=== PATIENT | female | born 1960 | race African-American/Black ===

== ENCOUNTER 2020-04-09 19:30 | Emergency (ER) | payer BC ==
[~2020-04-09] VITALS: Ht 175.3 cm; Wt 51.4 kg
[2020-04-09] MEDS ORDERED: IV NORMAL SALINE 1,000ML 1,000 ML IV SCH (19:46)
[2020-04-09] MEDS ORDERED: ONDANSETRON PF 4 MG/2 ML VIAL. IVP ONE (20:00)
--- NOTE | 2020-04-09 20:02 | PHYS DOC ---
Past History Past Medical History: Diabetes Past Surgical History: Other (knee) Additional Past Surgical Histo: knee surgery Smoking: Non-smoker Alcohol Use: Rarely Drug Use: None General Adult EDM: Chief Complaint: NAUSEA/VOMITING/DIARRHEA HPI: HPI: Patient is a 59 year old female who presents for evaluation of mid and lower abdominal discomfort that started about 3 PM today. Patient began recurring episodes of nausea and vomiting. Patient denies any known exposure to Covid but she is visiting from [place]. He is up to see family for a . Patient is in mild to moderate distress on arrival. Vital signs were otherwise stable. No reported black, bloody or tarry stools. Review of Systems: Review of Systems: Constitutional: Denies fever or chills Eyes: Denies change in visual acuity HENT: Denies nasal congestion or sore throat Respiratory: Denies cough or shortness of breath Cardiovascular: Denies chest pain or edema GI: has mid and lower abdominal pain with nausea and vomiting, no bloody stools or diarrhea : Denies dysuria Musculoskeletal: Denies back pain or joint pain Integument: Denies rash Neurologic: Denies headache, focal weakness or sensory changes Endocrine: Denies polyuria or polydipsia Lymphatic: Denies swollen glands Psychiatric: Denies depression or anxiety Current Medications: Current Meds: Current Medications Medications (Trade) Dose Ordered Sig/[facility] Start Time Stop Time Status Last Admin Dose Admin Fentanyl Citrate (Fentanyl 2ml Vial) 25 mcg PRN Q15MIN PRN 04/09/20 20:00 04/10/20 19:59 UNV Ondansetron HCl (Zofran) 4 mg 1X ONCE 04/09/20 20:00 04/09/20 20:01 UNV Sodium Chloride 1,000 ml @ 1,000 mls/hr Q1H 04/09/20 19:46 04/09/20 20:45 UNV Physical Exam: PE: Constitutional: Well developed, well nourished, mild to moderate acute distress. [] HENT: Normocephalic, atraumatic, bilateral external ears normal, oropharynx moist, no oral exudates, nose normal. [] Eyes: PERRL, EOMI, conjunctiva normal, no discharge. [] Neck: Normal range of motion, no tenderness, supple. [] Cardiovascular:Heart rate regular rhythm, no murmur [] Lungs & Thorax: Bilateral breath sounds clear to auscultation [] Abdomen: Bowel sounds normal, soft, mild to moderate mid and lower abd t enderness, no masses, no pulsatile masses. [] Skin: Warm, dry, no erythema, no rash. [] Back: No tenderness. [] Extremities: No tenderness, no cyanosis, ROM intact, no edema. [] Neurologic: Alert and oriented X 3, normal motor function, normal sensory function, no focal deficits noted. [] Psychologic: Affect abnormal, judgement normal, mood abnormal. [] Current Patient Data: Labs: Laboratory Tests Test 04/09/20 20:10 04/09/20 21:20 White Blood Count 4.6 x10^3/uL Red Blood Count 4.15 x10^6/uL Hemoglobin 12.0 g/dL Hematocrit 36.5 % Mean Corpuscular Volume 88 fL Mean Corpuscular Hemoglobin 29 pg Mean Corpuscular Hemoglobin Concent 33 g/dL Red Cell Distribution Width 13.5 % Platelet Count 189 x10^3/uL Neutrophils (%) (Auto) 73 % Lymphocytes (%) (Auto) 19 % Monocytes (%) (Auto) 6 % Eosinophils (%) (Auto) 2 % Basophils (%) (Auto) 1 % Neutrophils # (Auto) 3.3 x10^3uL Lymphocytes # (Auto) 0.9 x10^3/uL Monocytes # (Auto) 0.3 x10^3/uL Eosinophils # (Auto) 0.1 x10^3/uL Basophils # (Auto) 0.0 x10^3/uL Sodium Level 139 mmol/L Potassium Level 3.7 mmol/L Chloride Level 102 mmol/L Carbon Dioxide Level 28 mmol/L Anion Gap 9 Blood Urea Nitrogen 10 mg/dL Creatinine 0.5 mg/dL Estimated GFR (Cockcroft-Gault) 126.7 BUN/Creatinine Ratio 20 Glucose Level 200 mg/dL Calcium Level 9.7 mg/dL Total Bilirubin 0.6 mg/dL Aspartate Amino Transf (AST/SGOT) 16 U/L Alanine Aminotransferase (ALT/SGPT) 19 U/L Alkaline Phosphatase 53 U/L Troponin I Quantitative < 0.017 ng/mL Total Protein 7.6 g/dL Albumin 3.9 g/dL Albumin/Globulin Ratio 1.1 Lipase 40 U/L Urine Collection Type Unknown Urine Color Yellow Urine Clarity Hazy Urine pH 7.5 Urine Specific [place] 1.025 Urine Protein Trace Urine Glucose (UA) 500 mg/dL Urine Ketones (Stick) 40 mg/dL Urine Blood Trace Urine Nitrite Neg Urine Bilirubin Neg Urine Urobilinogen Dipstick 1.0 mg/dL Urine Leukocyte Esterase Neg Urine RBC Rare /HPF Urine WBC Rare /HPF Urine Squamous Epithelial Cells None /LPF Urine Bacteria 0 /HPF Current Medications Medications (Trade) Dose Ordered Sig/Alex Route PRN Reason Start Time Stop Time Status Last Admin Dose Admin Fentanyl Citrate (Fentanyl 2ml Vial) 25 mcg PRN Q15MIN PRN IV PAIN GREATER THAN 3/10 04/09/20 20:00 04/10/20 19:59 04/09/20 20:12 Sodium Chloride 1,000 ml @ 1,000 mls/hr Q1H IV 04/09/20 19:46 04/09/20 20:45 DC 04/09/20 20:11 Ondansetron HCl (Zofran) 4 mg 1X ONCE IVP 04/09/20 20:00 04/09/20 20:38 DC 04/09/20 20:12 Fentanyl Citrate (Fentanyl 2ml Vial) 50 mcg 1X ONCE IVP 04/09/20 21:15 04/09/20 21:16 DC 04/09/20 21:31 Iohexol (Omnipaque 300 Mg/ml) 75 ml 1X ONCE IV 04/09/20 21:45 04/09/20 21:47 DC Info (Do NOT chart on this entry -- for MONITORING) 1 each PRN DAILY PRN MC SEE COMMENTS 04/09/20 21:45 04/11/20 21:44 EKG: EKG: [EKG showed normal sinus rhythm, rate 90, nonspecific ST segment changes, rightward axis, QT somewhat prolonged, not STEMI Radiology/Procedures: Radiology/Procedures: [][address] [address] IMAGING REPORT Signed PATIENT: ADEEL RAHMAN ACCOUNT: [id number] : 1960 LOCATION: ER AGE: 59 SEX: F EXAM STATUS: PRE ER ORD. PHYSICIAN: AMILCAR WOLF DO REASON: short of air PROCEDURE: PORTABLE CHEST 1V Examination: PORTABLE CHEST 1V History: Reason: short of air / Spl. Instructions: / History: Comparison/Correlation: None Findings: Global from the chest was obtained. Heart size and pulmonary vasculature are normal. No effusion. Subtle infiltrate in the lateral right lung overlying the right sixth rib posterior shadow is questioned. No pneumothorax. Deformity of the right humeral head is notable. Impression: Small subtle infiltrate at the right lateral upper to midthoracic level. Interval follow-up 2 view chest x-ray to assess resolution recommended. Electronically signed by: Kristopher Dial MD (04/09/2020 8:34 PM) [facility] DICTATED AND SIGNED BY: KRISTOPHER DIAL MD DATE: 04/09/202033 CC: SANDY ISAAC MD; AMILCAR WOLF DO ~ Impressions: [address] [address] IMAGING REPORT Signed PATIENT: ADEEL RAHMAN ACCOUNT: [id number] : 1960 LOCATION: ER AGE: 59 SEX: F EXAM STATUS: REG ER ORD. PHYSICIAN: AMILCAR WOLF DO REASON: abd pain, N/V/D, OMNI 300, 75ml PROCEDURE: CT ABD PELV W/ IV CONTRST ONLY Exam: CT of abdomen and pelvis with contrast INDICATION: Abdominal pain, nausea, vomiting and diarrhea TECHNIQUE: Sequential axial images through the abdomen and pelvis obtained following the administration of 75 mL of Omni 300 IV contrast. Sagittal and coronal reformatted images were reconstructed from the axial data and reviewed. Comparisons: None FINDINGS: Heart size is normal. No pericardial effusion. Visualized lung bases are clear. Liver, spleen, pancreas, adrenals and gallbladder are unremarkable. Kidneys demonstrate symmetric enhancement. No perinephric inflammation or hydronephrosis. Nonobstructing calculus at the mid right kidney. No ureteral calculi are identified. Bladder is distended and appears thin-walled. Uterus is nonenlarged. No abnormal adnexal mass. Large and small bowel are unremarkable. Appendix is normal. No free intra-abdominal air or fluid. No obstruction. Abdominal aorta has a normal course and caliber. Abdominal vasculature is patent. No enlarged abdominal lymph nodes are identified. No enlarged abdominal lymph nodes are identified. No acute process identified within the abdomen or pelvis. IMPRESSION: 1. Nonobstructing right renal calculus. No evidence for obstructive uropathy. 2. Otherwise, no acute process identified within the abdomen or pelvis. Exposure: One or more of the following in the visualized dose reduction techniques were utilized for this examination: 1. Automated exposure control 2. Adjustment of the MA and/or KV according to patient size 3. Use of iterative of reconstructive technique Electronically signed by: Nabeel Prabhakar MD (04/09/2020 10:49 PM) [facility] DICTATED AND SIGNED BY: NABEEL PRABHAKAR MD DATE: 04/09/202248 CC: SANDY ISAAC MD; AMILCAR WOLF DO ~ Heart Score: Risk Factors: Risk Factors: DM, Current or recent (<one month) smoker, HTN, HLP, family history of CAD, obesity. Risk Scores: Score 0 - 3: 2.5% MACE over next 6 weeks - Discharge Home Score 4 - 6: 20.3% MACE over next 6 weeks - Admit for Clinical Observation Score 7 - 10: 72.7% MACE over next 6 weeks - Early Invasive Strategies Course & Med Decision Making: Course & Med Decision Making Pertinent Labs and Imaging studies reviewed. (See chart for details) [] Dragon Disclaimer: Dragon Disclaimer: This electronic medical record was generated, in whole or in part, using a voice recognition dictation system. 2255 stable, feeling much better at this time. Pain is essentially controlled. Cause of her abdominal discomfort is unclear but her CT scan abdomen pelvis was unremarkable. Furthermore her blood work including urinalysis also unremarkable. She has a finding of a renal stone but there is no evidence of a hydroureter etc. Supportive care recommended. Prescription for Bentyl and Zofran given. Close follow-up recommended. Detailed follow-up instructions Departure Departure: Impression: Primary Impression: Abdominal pain, acute, generalized Additional Impression: Nausea & vomiting Qualified Codes: R11.2 - Nausea with vomiting, unspecified Disposition: 01 DC HOME SELF CARE/HOMELESS Condition: STABLE Referrals: SANDY ISAAC MD (PCP) Patient Instructions: Abdominal Pain, Nausea and Vomiting Additional Instructions: Drink plenty fluids, rest, cause of your abdominal pain is unclear however your blood work, urinalysis and CT scan abd/pelvis were unremarkable Scripts Dicyclomine Hcl (DICYCLOMINE HCL) 20 Mg Tablet 1 TAB PO TID for abd cramping, #30 TAB 1 Refill Prov: AMILCAR WOLF DO 04/09/20 Ondansetron Hcl (ZOFRAN) 4 Mg Tablet 1 TAB PO PRN Q6HRS PRN for NAUSEA, #10 TAB Prov: AMILCAR WOLF DO 04/09/20 AMILCAR WOLF DO Apr 09, 2020 20:02
--- NOTE | 2020-04-09 20:37 | RAD ---
Examination: PORTABLE CHEST 1V History: Reason: short of air / Spl. Instructions: / History: Comparison/Correlation: None Findings: Global from the chest was obtained. Heart size and pulmonary vasculature are normal. No effusion. Subtle infiltrate in the lateral right lung overlying the right sixth rib posterior shadow is questioned. No pneumothorax. Deformity of the right humeral head is notable. Impression: Small subtle infiltrate at the right lateral upper to midthoracic level. Interval follow-up 2 view chest x-ray to assess resolution recommended. Electronically signed by: Kristopher Vasquez MD (04/09/2020 8:34 PM) [facility]
[2020-04-09 20:41] LABS: BASO % 1 % (0-3); EOS # 0.1 x10^3/uL (0.0-0.7); EOS % 2 % (0-3); HEMATOCRIT 36.5 % (36.0-47.0); LYMPH # 0.9 x10^3/uL (1.0-4.8); LYMPH % 19 % (24-48); MEAN CORPUSCULAR HEMOGLOBIN 29 pg (25-35); MEAN CORPUSCULAR HGB CONC 33 g/dL (31-37); MEAN CORPUSCULAR VOLUME 88 fL (79-100); MONO # 0.3 x10^3/uL (0.0-1.1); MONO % 6 % (0-9); NEUT # 3.3 x10^3uL (1.8-7.7); NEUT % 73 % (31-73); PLATELET COUNT 189 x10^3/uL (140-400); RED BLOOD COUNT 4.15 x10^6/uL (3.50-5.40); RED CELL DISTRIBUTION WIDTH 13.5 % (11.5-14.5); WHITE BLOOD COUNT 4.6 x10^3/uL (4.0-11.0)
[2020-04-09 20:47] LABS: CALCIUM 9.7 mg/dL (8.5-10.1); CREATININE 0.5 mg/dL (0.6-1.0); GFR 126.7; POTASSIUM 3.7 mmol/L (3.5-5.1)
[2020-04-09 20:53] LABS: ALBUMIN 3.9 g/dL (3.4-5.0); ALBUMIN/GLOBULIN RATIO 1.1 (1.0-1.7); TOTAL BILIRUBIN 0.6 mg/dL (0.2-1.0); TOTAL PROTEIN 7.6 g/dL (6.4-8.2)
[2020-04-09] MEDS ORDERED: CONTRAST GIVEN. MC PRN (21:45)
[2020-04-09] MEDS ORDERED: IOHEXOL 300 MG/ML 75 ML VIAL. IV ONE (21:45)
[2020-04-09 22:08] LABS: BILIRUBIN,URINE NEG (NEG); CLARITY,URINE HAZY; COLOR,URINE YELLOW; GLUCOSE,URINE 500 mg/dL (NEG); NITRITE,URINE NEG (NEG)
[2020-04-09 22:09] LABS: BACTERIA,URINE 0 /HPF (0-FEW); RBC,URINE RARE /HPF (0-2); WBC,URINE RARE /HPF (0-4)
--- NOTE | 2020-04-09 22:52 | RAD ---
Exam: CT of abdomen and pelvis with contrast INDICATION: Abdominal pain, nausea, vomiting and diarrhea TECHNIQUE: Sequential axial images through the abdomen and pelvis obtained following the administration of 75 mL of Omni 300 IV contrast. Sagittal and coronal reformatted images were reconstructed from the axial data and reviewed. Comparisons: None FINDINGS: Heart size is normal. No pericardial effusion. Visualized lung bases are clear. Liver, spleen, pancreas, adrenals and gallbladder are unremarkable. Kidneys demonstrate symmetric enhancement. No perinephric inflammation or hydronephrosis. Nonobstructing calculus at the mid right kidney. No ureteral calculi are identified. Bladder is distended and appears thin-walled. Uterus is nonenlarged. No abnormal adnexal mass. Large and small bowel are unremarkable. Appendix is normal. No free intra-abdominal air or fluid. No obstruction. Abdominal aorta has a normal course and caliber. Abdominal vasculature is patent. No enlarged abdominal lymph nodes are identified. No enlarged abdominal lymph nodes are identified. No acute process identified within the abdomen or pelvis. IMPRESSION: 1. Nonobstructing right renal calculus. No evidence for obstructive uropathy. 2. Otherwise, no acute process identified within the abdomen or pelvis. Exposure: One or more of the following in the visualized dose reduction techniques were utilized for this examination: 1. Automated exposure control 2. Adjustment of the MA and/or KV according to patient size 3. Use of iterative of reconstructive technique Electronically signed by: Nabeel Tineo MD (04/09/2020 10:49 PM) [facility]
[2020-04-09] MEDS ORDERED: ONDA4TAB7 PO (23:04)
[2020-04-09] MEDS ORDERED: DICY20TA3 PO (23:04)
[2020-04-09 23:15] VITALS: BP 125/77
--- NOTE | 2020-04-10 00:15 | EKG ---
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
--- NOTE | 2020-04-10 10:30 | EKG ---
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
== END 2020-04-09 23:15 | disposition home or self-care (01) ==
LOC: ER 19:30
DX: R10.84 Generalized abdominal pain (principal); R11.2 Nausea with vomiting, unspecified; E11.9 Type 2 diabetes mellitus without complications
CPT/HCPCS: 36415; 71045; 74177; 80053; 81001; 83690; 84484; 85025; 93005; 96361; 96374; 96375; 96376; 99285; J2405; J3010; J7030; Q9967